=== PATIENT | male | born 1975 | race Hispanic/Latino ===

== ENCOUNTER 2019-08-11 22:56 | Inpatient (IN) | payer SELFPAY ==
[~2019-08-11 22:56] MED LIST: ISOVUE-370 76%-LOCM 1 ML ONE
[2019-08-11 23:22] LABS: #Lymphocytes 0.3 thou/uL (1.20-3.40); #Neutrophils 4.5 thou/uL (1.40-6.50); %Basophils 0.2 % (0.0-1.0); %Eosinophils 0.3 % (0.0-10.0); %Lymphocytes 6.4 % (21.0-51.0); %Monocytes 0.4 % (0.0-10.0); %Neutrophils 92.7 % (42.0-75.0); Hemoglobin 16.9 g/dL (14.0-18.0); Mean Corpuscular HGB CONC 35.4 g/dL (32.0-36.0); Mean Corpuscular Hemoglobin 31.9 pg (27.0-31.0); Mean Platelet Volume 6.9 fL (7.4-10.4); Platelet Count 135 thou/uL (130-400); RBC Distribution Width 11.4 % (11.5-14.5); Red Blood Cell (RBC) Count 5.31 mill/uL (4.70-6.10); White Blood Cell (WBC) Count 4.8 thou/uL (4.8-10.8)
[2019-08-11] MEDS ORDERED: Ondansetron PF 4 MG/2 ML Vial ONE (23:26)
[2019-08-11 23:29] LABS: INR-International Normal Ratio 1.2; PTT 23.2 SEC (22.9-36.1)
--- NOTE | 2019-08-11 23:36 | CT ---
CT ABDOMEN WITH CONTRAST CT PELVIS WITH CONTRAST: DATE: 08/11/2019 HISTORY: 43-year-old male with "sepsis." Generalized abdominal pain, fever, nausea, chills. COMPARISON: None available TECHNIQUE: IV injection of iodinated contrast media: administered. Oral contrast media:Not administered FINDINGS: There is mural thickening and mural edema involving the cecum. This continues into involvement of the entire appendix, which also has mural thickening and mural edema. Caliber of the appendix proximally is 11 x 9 mm. There is little or no periappendiceal fat stranding. No extraluminal gas or free fluid within the abdominal cavity or pelvic cavity. No signs of colonic diverticulitis. No small bowel dilation. Empty urinary bladder. No major pathology identified involving kidneys, abdomin al aorta, adrenals, pancreas, liver, or spleen. No pleural effusion. Cholecystectomy clips in gallbladder fossa. IMPRESSION: 1. Mural edema and mural thickening of the appendix and cecum. Uncertain whether this is a primary ac [place] appendicitis (without perforation) that is secondarily involving the cecum, or a typhlitis that is secondarily involving the appendix. 2. Status post cholecystectomy. 3. No abscess.
[2019-08-11 23:41] LABS: ALT (SGPT) 315 U/L (8-55); AST (SGOT) 813 U/L (5-34); Albumin 4.1 g/dL (3.5-5.0); Alkaline Phosphatase 184 U/L (40-110); Anion Gap 16 mmol/L (10-20); BUN (Urea Nitrogen) 18 mg/dL (8.9-20.6); Bilirubin, Total 2.5 mg/dL (0.2-1.2); Calc. Creatinine Clearance 0 mL/min (70-130); Calcium 9.1 mg/dL (7.8-10.44); Carbon Dioxide 21 mmol/L (22-29); Chloride 102 mmol/L (98-107); Estimated GFR-MDRD 48; Globulin 2.7 g/dL (2.4-3.5); Glucose 182 mg/dL (70-105); Lipase 33 U/L (8-78); Protein, Total 6.8 g/dL (6.0-8.3); Sodium 136 mmol/L (136-145)
[2019-08-12] MEDS ORDERED: Piperacillin/Tazobactam 4.5 GM VIAL ONE (00:08)
[2019-08-12 00:52] LABS: Bacteria/HPF None Seen HPF (None Seen); Bilirubin Negative (Negative); Blood, Urine Negative (Negative); Clarity Clear (Clear); Glucose, Urine (Dipstick) Normal (Negative); Leukocyte Negative Leu/uL (Negative); Nitrite Negative (Negative); Protein, Urine (Dipstick) 50 mg/dL (Neg-Trace); RBC/HPF 0-3 HPF (0-3); Squamous Epithelial None Seen HPF (0-3); Urobilinogen Normal mg/dL (Less than 2)
[2019-08-12 03:16] LABS: Lactic Acid 3.6 mmol/L (0.5-2.2)
[2019-08-12] MEDS ORDERED: Acetaminophen 325 MG TAB PO PRN (03:43)
[2019-08-12] MEDS ORDERED: Lorazepam 2 MG/ML VIAL SLOW IVP PRN (03:50)
--- NOTE | 2019-08-12 05:06 | HP ---
CHIEF COMPLAINT: Abdominal pain. HISTORY OF PRESENT ILLNESS: This patient is a 43-year-old male, who drinks 4 to 5 very large beers per day, who presented to the emergency department complaining of abdominal pain. The patient had sharp pressure-type epigastric and left lower quadrant pain, that started about 30 minutes post prandial, his ate the same meal and she is not having any symptoms, that was at noon today. The pain was up to 10/10, slightly better now at 6/10. It is specifically located in the epigastrium and left lower quadrant. Denies any right upper quadrant or right lower quadrant pain. The patient also had some vomiting, that is actually what prompted him to seek attention in the emergency department. He has no significant history of abdominal issues. REVIEW OF SYSTEMS: Vomiting times a couple of episodes. He has some headache, lightheadedness, and minimal cough. All other systems reviewed, all pertinent positives and negatives noted in history of present illness. PAST MEDICAL HISTORY: None. PAST SURGICAL HISTORY: Lap angela. FAMILY HISTORY: Only notable for "heart problems." SOCIAL HISTORY: The patient smokes 2 to 3 cigarettes per day. He drinks 4 to 5 large beers per day. He cannot recall the last time he went 24 hours without drinking this much, but he does report that it has been many years. Denies drugs. He is . He is full code. His son is his surrogate decision maker. ALLERGIES: NONE. MEDICATIONS: None. PHYSICAL EXAMINATION: VITAL SIGNS: Initially on presentation to the ER, BP was 74/42, pulse 116, respirations 20, temperature 99.8, O2 saturation was 94% on room air. Lowest blood pressure recorded was 69/47, heart rate got as high as 111, and his T-max in the ER was 99%. Most recent blood pressure was 91/69 with pulse of 102. GENERAL APPEARANCE: Age-appropriate male, in no distress. He is awake, alert, oriented, pleasant, and cooperative. HEENT: Slight scleral icterus. No acute lesions. NECK: Supple and symmetric. HEART: Regular rate and rhythm with no murmurs, gallops or rubs. LUNGS: Clear to auscultation bilaterally with no wheezes or rales. ABDOMEN: Soft and nondistended. There is slight tenderness to palpation in the epigastrium and left lower quadrant, but fairly minimal. He has no guarding and no rebound. Bowel sounds are significantly diminished. EXTREMITIES: No cyanosis, clubbing or edema. PSYCHIATRIC: Normal affect and behavior. NEUROLOGIC: The patient moves all extremities spontaneously, appears to be cognitively intact with no focal deficits. LABORATORY DATA: White count 4.8, hemoglobin 16.9, and platelets 135. PT 15.0, INR 1.2, and PTT 23.2. Sodium 136, potassium 3.0, chloride 102, CO2 of 21, BUN 18, creatinine 1.61 with a GFR of 48, glucose 182, lactic acid 5.3 with subsequent 3.6, and calcium 9.1. Total bilirubin 2.5, AST 813, ALT 315, and alk phos 184. Urinalysis unremarkable. CT abdomen and pelvis, mural edema and mural thickening of the appendix and cecum, uncertain whether this is a primary acute appendicitis that is secondarily involving the cecum or a typhlitis that is secondarily involving the appendix, status post cholecystectomy. No abscess is seen. IMPRESSION AND PLAN: 1. Abdominal pain with nausea, vomiting, and hypotension with abnormal CT concerning for inflammatory changes in the cecum and appendix area. The patient had a CT reviewed by Dr. Cason. She did not feel he had acute appendicitis or that there was a need for immediate surgical intervention. He has received vancomycin and Zosyn in the emergency department. We will continue with those. 2. Sepsis. The patient has hypotension with elevated lactic acid and concern for underlying infection in the bowel. He has a fluid resuscitation. We will continue with IV antibiotics. 3. Alcoholism. The patient is a daily significant drinker. We will give p.r.n. Ativan, thiamine, and a banana bag. 4. Hypokalemia. We will replete the potassium IV. 5. Renal insufficiency. I have no prior labs to know if this is acute or chronic. Currently, he is at a stage III level GFR. We will see how that responds to IV fluids. 6. Abnormal LFTs with elevated bilirubin. Again, the patient is a fairly heavy alcohol drinker and this may be acute alcoholic hepatitis. He is not tender in the liver or right upper quadrant and CT did not show other pathology. He has had a cholecystectomy. We will continue to monitor. 7. Hyperglycemia. We will continue to trend. Job ID: [id number]
[2019-08-12] MEDS ORDERED: Acetaminophen 325 MG TAB ONE (05:30)
[2019-08-12] MEDS ORDERED: Potassium Chloride 40 MEQ in Sodium Chloride 0.9% 500 ML IVPB SCH (06:00)
[2019-08-12] MEDS: Sodium Chloride 0.9% 1,000 ML IV SCH ×2 (06:09→17:54)
[2019-08-12] MEDS: Multivitamins, Adult 10 ML, Folic Acid 1 MG, Thiamine HCl 100 MG in Dextrose 5 %-0.45 %... IV SCH (06:25)
[2019-08-12] MEDS ORDERED: FLU VACC QS2019-20(6MOS UP)/PF 60 MCG/0.5 ML SYRINGE IM ONE (08:30)
[2019-08-12] MEDS ORDERED: Vancomycin HCl 1 GM in Premix Bag 1 BAG IVPB SCH (09:00)
[2019-08-12] MEDS: Enoxaparin Sodium 40 MG/0.4 ML SYRINGE SC SCH (10:07)
[2019-08-12] MEDS: Piperacillin/Tazobactam 3.375 GM in Sodium Chloride 0.9% 100 ML IVPB SCH ×4 (10:07→23:35)
[2019-08-12] MEDS: Famotidine/PF 20 mg/2ml Vial SLOW IVP SCH ×2 (10:08→20:39)
[2019-08-12 10:43] VITALS: BMI 33.6
[2019-08-12] MEDS: Vancomycin HCl 1.25 GM in Sodium Chloride 0.9% 250 ML 250 ML IVPB SCH (12:58)
--- NOTE | 2019-08-12 13:14 | PDOC.HOSPP ---
- Subjective Encounter Date: 08/12/19 Encounter Time: 10:30 Subjective: awake, not in distress at bedside no nausea or vomiting, is passing flatus, no bm - Objective Vital Signs & Weight: Vital Signs (12 hours) Temp Pulse Resp BP Pulse Ox 08/12/19 11:55 98.5 F 78 18 97/59 L 97 08/12/19 07:30 100.3 F H 94 18 104/58 L 96 Weight Weight 202 lb Result Diagrams: 08/11/19 23:09 08/11/19 23:09 Hospitalist ROS - Medication Medications: Active Medications Generic Name Dose Route Start Last Admin Trade Name Freq PRN Reason Stop Dose Admin Acetaminophen 650 mg 08/12/19 03:43 08/12/19 05:25 Tylenol PO 650 mg Q4H PRN Administration Headache/Fever/Mild Pain (1-3) Enoxaparin Sodium 40 mg 08/12/19 09:00 08/12/19 10:07 Lovenox SC 40 mg 0900 ROMELIA Administration Famotidine 20 mg 08/12/19 09:00 08/12/19 10:08 Pepcid SLOW IVP 20 mg Q12HR ROMELIA Administration Piperacillin Sod/Tazobactam 100 mls @ 200 mls/hr 08/12/19 06:00 08/12/19 11: 58 Sod 3.375 gm/ Sodium Chloride IVPB 100 mls Q6HR ROMELIA Administration Multivitamins 10 ml/ Folic 1,011.2 mls @ 100 mls/hr 08/12/19 06:00 08/12/19 06:25 Acid 1 mg/ Thiamine HCl 100 mg IV 1,011.2 mls / Dextrose/Sodium Chloride 0600 ROMELIA Administration Sodium Chloride 1,000 mls @ 75 mls/hr 08/12/19 05:00 08/12/19 06:09 Normal Saline 0.9% IV 1,000 mls .[id number] ROMELIA Administration Vancomycin HCl 1.25 gm/ Sodium 250 mls @ 166.667 mls/hr 08/12/19 13:00 12:58 Chloride IVPB 250 mls 0100,1300 ROMELIA Administration Sodium Chloride 10 ml 08/12/19 09:00 08/12/19 10:07 Flush - Normal Saline IVF 10 ml Q12HR ROMELIA Administration - Exam General Appearance: awake alert, ill appearing Eye: PERRL, anicteric sclera ENT: no oropharyngeal lesions, moist mucosa Neck: supple, no JVD Heart: RRR, no murmur Respiratory: no wheezes, no rales Gastrointestinal: soft, normal bowel sounds, no guarding, no rigidity, distended Extremities: no cyanosis, no edema Neurological: cranial nerve grossly intact, no focal deficits Psychiatric: A&O x 3 Hosp A/P (1) Colitis Code(s): K52.9 - NONINFECTIVE GASTROENTERITIS AND COLITIS, UNSPECIFIED Status : Acute (2) Sepsis Code(s): A41.9 - SEPSIS, UNSPECIFIED ORGANISM Status: Acute Qualifiers: Sepsis type: sepsis due to unspecified organism (3) MIKE (acute kidney injury) Code(s): N17.9 - ACUTE KIDNEY FAILURE, UNSPECIFIED Status: Acute (4) Alcohol abuse Code(s): F10.10 - ALCOHOL ABUSE, UNCOMPLICATED Status: Chronic (5) Metabolic acidosis Code(s): E87.2 - ACIDOSIS Status: Acute (6) Tobacco abuse Code(s): Z72.0 - TOBACCO USE Status: Chronic (7) Alcoholic hepatitis Code(s): K70.10 - ALCOHOLIC HEPATITIS WITHOUT ASCITES Status: Acute Qualifiers: Ascites presence: unspecified Qualified Code(s): K70.10 - Alcoholic hepatitis without ascites - Plan await culture results, is on zosyn, clear liq diet no surgery for now, surgical consult is pending gentle iv fluids/banana bag, ASE protocol, watch for aspiration to ambulate as tolerated I have given full updates to and patient at bedside May transfer to medical floor
--- NOTE | 2019-08-12 17:11 | PDOC.GSPN ---
Surgery Progress Note: Subj - Subjective Narrative: Patient seen this afternoon. Full consult note to follow. Alcoholic patient admitted with symptoms of gastritis, with findings of typhlitis and thickened appendix on CT. I reviewed his CT last night and felt the changes in the cecal cap were much more prominent, and the appendix mural thickening was likely reactive. The patient denies any pain in the right lower quadrant. He states that his pain is mostly in the epigastrium, with some pain in the left lower quadrant. Exam is consistent with this. Recommend medical treatment for gastritis and typhlitis, with repeat CT if symptoms worsen. I will follow while he is inpatient but do not plan surgical intervention at this time. Surgery Progress Note: Obj - Vital signs Vital signs: Vital Signs - Most Recent Temp Pulse Resp BP Pulse Ox 98.5 F 78 18 97/59 L 97 08/12/19 11:55 08/12/19 11:55 08/12/19 11:55 08/12/19 11:55 08/12/19 11:55 Surgery Progress Note: Results - Labs Result Diagrams: 08/11/19 23:09 08/11/19 23:09
[2019-08-13] MEDS: Vancomycin HCl 1.25 GM in Sodium Chloride 0.9% 250 ML 250 ML IVPB SCH ×3 (00:20→21:40)
--- NOTE | 2019-08-13 01:20 | CON ---
DATE OF CONSULTATION: CHIEF COMPLAINT: Abdominal pain. HISTORY OF PRESENT ILLNESS: Mr. Jordan King is a 43-year-old man with history of alcohol abuse, who presented to the emergency department with a 1-day history of abdominal pain. He states that the pain was in the epigastric area in the left lower quadrant and was sharp, it began shortly after he ate, but persisted, so he came to the emergency room. He states that the pain is better since being admitted to the hospital. He denies any exacerbating or alleviating factors. Specifically, movement does not have any impact on the pain. He denies any diarrhea. He did have some nausea and vomiting, but this has resolved. He denies any fevers, although he thinks he had some chills yesterday. PAST MEDICAL HISTORY: Alcohol abuse. PAST SURGICAL HISTORY: Laparoscopic cholecystectomy. FAMILY HISTORY: Heart disease. SOCIAL HISTORY: He states that he drinks about 6 beers every day and smokes 2 or 3 cigarettes a week. He denies any illicit drug use. He has no history of shakes or DTs, but does not abstain from alcohol for any length of time. ALLERGIES: NO KNOWN DRUG ALLERGIES. MEDICATIONS: No outpatient medications. He did take some [id number] pills for his pain, which did not help. Inpatient medications include, 1. Lovenox. 2. Pepcid. 3. Ativan. 4. Multivitamin with folate and thiamine. 5. Zosyn. 6. Potassium. 7. Vancomycin. REVIEW OF SYSTEMS: Ten-system review of systems is negative except per HPI. PHYSICAL EXAMINATION: VITAL SIGNS: T-max 100.3, T current 98.5, heart rate 78, respirations 18, 97% saturated on room air, blood pressure 97/59. GENERAL: Reveals a healthy-appearing man, in no acute distress. He is not jaundiced or icteric. He is not flushed or toxic in appearance. HEENT: Unremarkable. NECK: Supple without lymphadenopathy or thyroid nodules. HEART: Regular in its rate and rhythm without murmurs, rubs, or gallops. LUNGS: Clear to auscultation bilaterally. ABDOMEN: Soft, nondistended. No palpable masses or hernias. He has some tenderness in the epigastric area in the left lower quadrant, but no tenderness in the right lower quadrant. He does not exhibit rigidity, rebound, or guarding. EXTREMITIES: Warm and well perfused without edema. NEURO: No focal deficits. PSYCHIATRIC: Alert, oriented, and appropriate . LABORATORY DATA: White count is 4.8, hematocrit 47, platelets 135. Coags are normal. Potassium is low at 3, but has been replaced. Bicarb 21, BUN 18, creatinine elevated at 1.61, glucose 182. Lactate was initially 5.3, came down somewhat to 3.6 after IV fluids. Total bilirubin is elevated at 2.5, AST and ALT are elevated at 813 and 315, alkaline phosphatase is elevated at 184. CT of abdomen and pelvis showed some mural edema and thickening of the appendix and cecum. The appendix near the cecal cap is dilated, but the tip is normal caliber. There is no apparent periappendiceal fat stranding. No free fluid or free air. ASSESSMENT: Incidentally noted typhlitis with reactive mural thickening of the appendix. I do not believe the patient has acute appendicitis and recommend medical treatment for the typhlitis. I believe that the symptoms that brought him in are more likely related to alcoholic hepatitis or gastritis and recommend medical management of this as well. I will continue to follow the patient while he is admitted, but no surgical intervention is necessary at this time he will require this. He has some acute renal insufficiency, but does not appear significantly dehydrated. If this does not improve, then renal consultation may be necessary. If his liver labs do not improve, then GI consult would be indicated. He denies any hematemesis or melena, so I do not believe he has any significant GI bleeding, but he is certainly at risk for this. He is on appropriate prophylaxis for ulcers and withdrawal. Job ID: [id number]
[2019-08-13] MEDS: Piperacillin/Tazobactam 3.375 GM in Sodium Chloride 0.9% 100 ML IVPB SCH ×4 (05:10→23:33)
[2019-08-13] MEDS: Multivitamins, Adult 10 ML, Folic Acid 1 MG, Thiamine HCl 100 MG in Dextrose 5 %-0.45 %... IV SCH (05:53)
[2019-08-13 05:56] LABS: Band 25 % (5-11); Hemoglobin 14.4 g/dL (14.0-18.0); Lymphocytes 4 % (21-51); MDiff Complete? YES; Mean Corpuscular HGB CONC 35.2 g/dL (32.0-36.0); Mean Corpuscular Volume 90.8 fL (78.0-98.0); Mean Platelet Volume 7.8 fL (7.4-10.4); Monocytes 2 % (0-10); Neutrophil 69 % (42-75); Platelet Count 125 thou/uL (130-400); RBC Distribution Width 11.2 % (11.5-14.5); Red Blood Cell (RBC) Count 4.49 mill/uL (4.70-6.10); White Blood Cell (WBC) Count 13.8 thou/uL (4.8-10.8)
[2019-08-13 05:59] LABS: ALT (SGPT) 241 U/L (8-55); AST (SGOT) 107 U/L (5-34); Albumin 3.2 g/dL (3.5-5.0); Alkaline Phosphatase 107 U/L (40-110); Anion Gap 11 mmol/L (10-20); BUN (Urea Nitrogen) 9 mg/dL (8.9-20.6); Bilirubin, Total 1.3 mg/dL (0.2-1.2); Calc. Creatinine Clearance 159 mL/min (70-130); Calcium 7.8 mg/dL (7.8-10.44); Carbon Dioxide 23 mmol/L (22-29); Chloride 105 mmol/L (98-107); Estimated GFR-MDRD Greater than 90; Globulin 2.6 g/dL (2.4-3.5); Glucose 81 mg/dL (70-105); Protein, Total 5.8 g/dL (6.0-8.3); Sodium 136 mmol/L (136-145)
[2019-08-13] MEDS: Sodium Chloride 0.9% 1,000 ML IV SCH ×2 (07:08→23:32)
[2019-08-13] MEDS: Enoxaparin Sodium 40 MG/0.4 ML SYRINGE SC SCH (09:28)
[2019-08-13] MEDS: Famotidine/PF 20 mg/2ml Vial SLOW IVP SCH ×2 (09:29→20:35)
--- NOTE | 2019-08-13 11:30 | PDOC.GSPN ---
Surgery Progress Note: Subj - Subjective Narrative: Patient feels better today. He states he is no longer having any abdominal pain. No fevers since yesterday morning. Vital signs are good. LFTs have improved. White count is elevated and he does have a bandemia, but I suspect that the bandemia was present on admission. He did not have a manual differential performed at admission, but he had over 90% segmented neutrophils on his automated differential. His abdomen is slightly distended but completely nontender. He appears to be responding to antibiotics for his typhlitis. No new recommendations. He should continue on his antibiotics as he is doing. I expect that the bandemia will resolve, but if this persists or he spikes fevers repeat CT can be considered. Surgery Progress Note: Obj - Vital signs Vital signs: Vital Signs - Most Recent Temp Pulse Resp BP Pulse Ox 99.2 F 85 18 107/67 95 08/13/19 07:14 08/13/19 07:14 08/13/19 07:14 08/13/19 07:14 08/13/19 07:35 Surgery Progress Note: Results - Labs Result Diagrams: 08/13/19 04:42 08/13/19 04:42 Lab results: Laboratory Results - last 24 hr 08/13/19 08/13/19 08/13/19 04:42 04:42 05:17 WBC 13.8 H RBC 4.49 L Hgb 14.4 Hct 40.7 L MCV 90.8 MCH 32.0 H MCHC 35.2 RDW 11.2 L Plt Count 125 L MPV 7.8 Neutrophils % (Manual) 69 Band Neuts % (Manual) 25 H Lymphocytes % (Manual) 4 L Monocytes % (Manual) 2 Sodium 136 Potassium 3.0 L Chloride 105 Carbon Dioxide 23 Anion Gap 11 BUN 9 Creatinine 0.79 Estimated GFR (MDRD) Greater than 90 Glucose 81 POC Glucose 84 Calcium 7.8 Total Bilirubin 1.3 H AST 107 H ALT 241 H Alkaline Phosphatase 107 Serum Total Protein 5.8 L Albumin 3.2 L Globulin 2.6 Albumin/Globulin Ratio 1.2 08/13/19 10:57 WBC RBC Hgb Hct MCV MCH MCHC RDW Plt Count MPV Neutrophils % (Manual) Band Neuts % (Manual) Lymphocytes % (Manual) Monocytes % (Manual) Sodium Potassium Chloride Carbon Dioxide Anion Gap BUN Creatinine Estimated GFR (MDRD) Glucose POC Glucose 160 H Calcium Total Bilirubin AST ALT Alkaline Phosphatase Serum Total Protein Albumin Globulin Albumin/Globulin Ratio
[2019-08-13 12:38] LABS: Vancomycin, Trough 4.8 ug/mL
--- NOTE | 2019-08-13 18:06 | PDOC.HOSPP ---
- Subjective Encounter Date: 08/13/19 Encounter Time: 10:45 Subjective: is amb in room passing bm, no nausea or abd pain is eating well, no shaking of extremities, responds well to verbal stimuli - Objective Vital Signs & Weight: Vital Signs (12 hours) Temp Pulse Resp BP Pulse Ox 08/13/19 16:00 99.3 F 83 20 113/73 97 08/13/19 11:00 99.1 F 81 18 109/71 96 08/13/19 07:35 95 08/13/19 07:14 99.2 F 85 18 107/67 95 Weight Weight 202 lb I&O: 08/12/19 08/13/19 08/14/19 06:59 06:59 06:59 Intake Total 1640 Balance 1640 Result Diagrams: 08/13/19 04:42 08/13/19 04:42 Additional Labs: Accuchecks 08/13/19 08/13/19 08/13/19 16:34 10:57 05:17 POC Glucose 131 H 160 H 84 08/12/19 20:07 POC Glucose 95 Hospitalist ROS - Medication Medications: Active Medications Generic Name Dose Route Start Last Admin Trade Name Freq PRN Reason Stop Dose Admin Acetaminophen 650 mg 08/12/19 03:43 08/12/19 05:25 Tylenol PO 650 mg Q4H PRN Administration Headache/Fever/Mild Pain (1-3) Enoxaparin Sodium 40 mg 08/12/19 09:00 08/13/19 09:28 Lovenox SC 40 mg 0900 ROMELIA Administration Famotidine 20 mg 08/12/19 09:00 08/13/19 09:29 Pepcid SLOW IVP 20 mg Q12HR ROMELIA Administration Piperacillin Sod/Tazobactam 100 mls @ 200 mls/hr 08/12/19 06:00 08/13/19 12: 04 Sod 3.375 gm/ Sodium Chloride IVPB 100 mls Q6HR ROMELIA Administration Multivitamins 10 ml/ Folic 1,011.2 mls @ 100 mls/hr 08/12/19 06:00 08/13/19 05:53 Acid 1 mg/ Thiamine HCl 100 mg IV 1,011.2 mls / Dextrose/Sodium Chloride 0600 ROMELIA Administration Sodium Chloride 1,000 mls @ 75 mls/hr 08/12/19 05:00 08/13/19 07:08 Normal Saline 0.9% IV Not Given .[id number] ROMELIA Vancomycin HCl 1.25 gm/ Sodium 250 mls @ 166.667 mls/hr 08/13/19 14:00 13:25 Chloride IVPB 250 mls Q8HR ROMELIA Administration Sodium Chloride 10 ml 08/12/19 09:00 08/13/19 09:30 Flush - Normal Saline IVF 10 ml Q12HR ROMELIA Administration - Exam General Appearance: awake alert Eye: PERRL, anicteric sclera ENT: no oropharyngeal lesions, moist mucosa Neck: supple, no JVD Heart: RRR, no murmur Respiratory: no wheezes, no rales Gastrointestinal: soft, non-tender, normal bowel sounds, distended Extremities: no cyanosis, no edema Neurological: cranial nerve grossly intact, no focal deficits Psychiatric: normal affect, A&O x 3 Hosp A/P (1) Colitis Code(s): K52.9 - NONINFECTIVE GASTROENTERITIS AND COLITIS, UNSPECIFIED Status : Acute (2) Sepsis Code(s): A41.9 - SEPSIS, UNSPECIFIED ORGANISM Status: Acute Qualifiers: Sepsis type: sepsis due to unspecified organism (3) MIKE (acute kidney injury) Code(s): N17.9 - ACUTE KIDNEY FAILURE, UNSPECIFIED Status: Resolved (4) Alcohol abuse Code(s): F10.10 - ALCOHOL ABUSE, UNCOMPLICATED Status: Chronic (5) Metabolic acidosis Code(s): E87.2 - ACIDOSIS Status: Resolved (6) Tobacco abuse Code(s): Z72.0 - TOBACCO USE Status: Chronic (7) Alcoholic hepatitis Code(s): K70.10 - ALCOHOLIC HEPATITIS WITHOUT ASCITES Status: Acute Qualifiers: Ascites presence: unspecified Qualified Code(s): K70.10 - Alcoholic hepatitis without ascites - Plan await culture results, is on zosyn, clear liq diet d/w , has typhlitis gentle iv fluids/banana bag, ASE protocol, watch for aspiration to ambulate as tolerated d/w patient and May transfer to medical floor anytime wbc is up a bit, bands+, tmax 99
[2019-08-14] MEDS: Piperacillin/Tazobactam 3.375 GM in Sodium Chloride 0.9% 100 ML IVPB SCH ×3 (05:33→18:20)
[2019-08-14] MEDS: Multivitamins, Adult 10 ML, Folic Acid 1 MG, Thiamine HCl 100 MG in Dextrose 5 %-0.45 %... IV SCH (05:34)
[2019-08-14] MEDS: Vancomycin HCl 1.25 GM in Sodium Chloride 0.9% 250 ML 250 ML IVPB SCH ×3 (05:35→21:52)
[2019-08-14 08:01] LABS: #Eosinphils 0.1 thou/uL (0.0-0.7); #Lymphocytes 1.2 thou/uL (1.20-3.40); #Monocytes 0.6 thou/uL (0.11-0.59); #Neutrophils 7.4 thou/uL (1.40-6.50); %Basophils 0.1 % (0.0-1.0); %Eosinophils 1.5 % (0.0-10.0); %Lymphocytes 12.4 % (21.0-51.0); %Monocytes 6.4 % (0.0-10.0); %Neutrophils 79.7 % (42.0-75.0); Hemoglobin 14.6 g/dL (14.0-18.0); Mean Corpuscular HGB CONC 36.1 g/dL (32.0-36.0); Mean Corpuscular Hemoglobin 31.8 pg (27.0-31.0); Mean Corpuscular Volume 88.2 fL (78.0-98.0); Mean Platelet Volume 7.5 fL (7.4-10.4); Platelet Count 126 thou/uL (130-400); Red Blood Cell (RBC) Count 4.59 mill/uL (4.70-6.10); White Blood Cell (WBC) Count 9.3 thou/uL (4.8-10.8)
[2019-08-14 08:22] LABS: ALT (SGPT) 140 U/L (8-55); AST (SGOT) 34 U/L (5-34); Albumin 3.3 g/dL (3.5-5.0); Alkaline Phosphatase 97 U/L (40-110); Anion Gap 9 mmol/L (10-20); BUN (Urea Nitrogen) 5 mg/dL (8.9-20.6); Bilirubin, Total 0.9 mg/dL (0.2-1.2); Calc. Creatinine Clearance 164 mL/min (70-130); Calcium 8.2 mg/dL (7.8-10.44); Carbon Dioxide 24 mmol/L (22-29); Chloride 107 mmol/L (98-107); Estimated GFR-MDRD Greater than 90; Globulin 2.6 g/dL (2.4-3.5); Glucose 117 mg/dL (70-105); Potassium 3.1 mmol/L (3.5-5.1); Protein, Total 5.9 g/dL (6.0-8.3); Sodium 137 mmol/L (136-145)
[2019-08-14] MEDS: Enoxaparin Sodium 40 MG/0.4 ML SYRINGE SC SCH (09:42)
[2019-08-14] MEDS: Sodium Chloride 0.9% 1,000 ML IV SCH ×2 (11:15→21:52)
--- NOTE | 2019-08-14 12:45 | PDOC.HOSPP ---
- Subjective Encounter Date: 08/14/19 Encounter Time: 09:50 Subjective: no abd pain, nausea or vomiting is tolerating oral diet ambulating in room oriented well with no shaking/withdrawal symptoms - Objective Vital Signs & Weight: Vital Signs (12 hours) Temp Pulse Resp BP BP Pulse Ox 08/14/19 12:12 98.7 F 83 16 132/69 95 08/14/19 09:39 99.1 F 77 16 118/77 118/77 96 08/14/19 04:00 99.5 F 79 16 119/77 95 Weight Weight 202 lb I&O: 08/13/19 08/14/19 08/15/19 06:59 06:59 06:59 Intake Total 1640 4370 Balance 1640 4370 Result Diagrams: 08/14/19 07:45 08/14/19 07:45 Additional Labs: Accuchecks 08/14/19 08/14/19 08/13/19 11:22 05:42 20:08 POC Glucose 120 H 105 127 H 08/13/19 16:34 POC Glucose 131 H Hospitalist ROS - Medication Medications: Active Medications Generic Name Dose Route Start Last Admin Trade Name Freq PRN Reason Stop Dose Admin Acetaminophen 650 mg 08/12/19 03:43 08/12/19 05:25 Tylenol PO 650 mg Q4H PRN Administration Headache/Fever/Mild Pain (1-3) Enoxaparin Sodium 40 mg 08/12/19 09:00 08/14/19 09:42 Lovenox SC 40 mg 0900 ROMELIA Administration Piperacillin Sod/Tazobactam 100 mls @ 200 mls/hr 08/12/19 06:00 08/14/19 05: 33 Sod 3.375 gm/ Sodium Chloride IVPB 100 mls Q6HR ROMELIA Administration Multivitamins 10 ml/ Folic 1,011.2 mls @ 100 mls/hr 08/12/19 06:00 08/14/19 05:34 Acid 1 mg/ Thiamine HCl 100 mg IV 1,011.2 mls / Dextrose/Sodium Chloride 0600 ROMELIA Administration Sodium Chloride 1,000 mls @ 75 mls/hr 08/12/19 05:00 08/14/19 11:15 Normal Saline 0.9% IV Not Given .[id number] ROMELIA Vancomycin HCl 1.25 gm/ Sodium 250 mls @ 166.667 mls/hr 08/13/19 14:00 05:35 Chloride IVPB 250 mls Q8HR ROMELIA Administration Pantoprazole Sodium 40 mg 08/14/19 09:00 08/14/19 09:43 Protonix PO 40 mg BID ROMELIA Administration Sodium Chloride 10 ml 08/12/19 09:00 08/14/19 09:38 Flush - Normal Saline IVF Not Given Q12HR ROMELIA - Exam General Appearance: awake alert Eye: PERRL, anicteric sclera ENT: no oropharyngeal lesions, moist mucosa Neck: supple, no JVD Heart: RRR, no murmur Respiratory: no wheezes, no rales Gastrointestinal: soft, non-tender, non-distended, normal bowel sounds Extremities: no cyanosis, no edema Neurological: cranial nerve grossly intact, no focal deficits Psychiatric: A&O x 3 Hosp A/P (1) Colitis Code(s): K52.9 - NONINFECTIVE GASTROENTERITIS AND COLITIS, UNSPECIFIED Status : Acute (2) Sepsis Code(s): A41.9 - SEPSIS, UNSPECIFIED ORGANISM Status: Acute Qualifiers: Sepsis type: sepsis due to unspecified organism (3) MIKE (acute kidney injury) Code(s): N17.9 - ACUTE KIDNEY FAILURE, UNSPECIFIED Status: Resolved (4) Alcohol abuse Code(s): F10.10 - ALCOHOL ABUSE, UNCOMPLICATED Status: Chronic (5) Metabolic acidosis Code(s): E87.2 - ACIDOSIS Status: Resolved (6) Tobacco abuse Code(s): Z72.0 - TOBACCO USE Status: Chronic (7) Alcoholic hepatitis Code(s): K70.10 - ALCOHOLIC HEPATITIS WITHOUT ASCITES Status: Acute Qualifiers: Ascites presence: unspecified Qualified Code(s): K70.10 - Alcoholic hepatitis without ascites - Plan will adv diet to heart healthy, cultures are -ve d/w , has typhlitis, no operative intervention needed gentle iv fluids/banana bag, ASE protocol, watch for aspiration to ambulate as tolerated d/w patient May transfer to medical floor anytime wbc is back to normal, lft's are trending towards normal this am dc plan in am on cipro/flagyl?
--- NOTE | 2019-08-14 15:04 | PDOC.GSPN ---
Surgery Progress Note: Subj - Subjective Narrative: Patient is feeling fine this morning. Denied abdominal pain or nausea. He is having some diarrhea. Abdominal exam is benign. He is slightly distended but nontender except for some very minimal left lower quadrant tenderness. Bowel sounds are normal to hyperactive. He is afebrile. His white count is normal and his left shift is improving. Agree with advancement of diet. Dr. Wilks will be following over the weekend. No surgical intervention is necessary at this time. Surgery Progress Note: Obj - Vital signs Vital signs: Vital Signs - Most Recent Temp Pulse Resp BP Pulse Ox 98.7 F 83 16 132/69 95 08/14/19 12:12 08/14/19 12:12 08/14/19 12:12 08/14/19 12:12 08/14/19 12:12 Surgery Progress Note: Results - Labs Result Diagrams: 08/14/19 07:45 08/14/19 07:45 Lab results: Laboratory Results - last 24 hr 08/14/19 08/14/19 08/14/19 05:42 07:45 07:45 WBC 9.3 RBC 4.59 L Hgb 14.6 Hct 40.5 L MCV 88.2 MCH 31.8 H MCHC 36.1 H RDW 11.0 L Plt Count 126 L MPV 7.5 Neutrophils % 79.7 H Lymphocytes % 12.4 L Monocytes % 6.4 Eosinophils % 1.5 Basophils % 0.1 Neutrophils # 7.4 H Lymphocytes # 1.2 Monocytes # 0.6 H Eosinophils # 0.1 Basophils # 0.0 Sodium 137 Potassium 3.1 L Chloride 107 Carbon Dioxide 24 Anion Gap 9 L BUN 5 L Creatinine 0.77 Estimated GFR (MDRD) Greater than 90 Glucose 117 H POC Glucose 105 Calcium 8.2 Total Bilirubin 0.9 AST 34 ALT 140 H Alkaline Phosphatase 97 Serum Total Protein 5.9 L Albumin 3.3 L Globulin 2.6 Albumin/Globulin Ratio 1.3 08/14/19 11:22 WBC RBC Hgb Hct MCV MCH MCHC RDW Plt Count MPV Neutrophils % Lymphocytes % Monocytes % Eosinophils % Basophils % Neutrophils # Lymphocytes # Monocytes # Eosinophils # Basophils # Sodium Potassium Chloride Carbon Dioxide Anion Gap BUN Creatinine Estimated GFR (MDRD) Glucose POC Glucose 120 H Calcium Total Bilirubin AST ALT Alkaline Phosphatase Serum Total Protein Albumin Globulin Albumin/Globulin Ratio
[2019-08-14] MEDS: Potassium Chloride 20 MEQ TAB PO SCH (18:24)
[2019-08-15] MEDS: Piperacillin/Tazobactam 3.375 GM in Sodium Chloride 0.9% 100 ML IVPB SCH ×2 (00:06→05:40)
[2019-08-15 05:18] LABS: #Eosinphils 0.2 thou/uL (0.0-0.7); #Lymphocytes 1.2 thou/uL (1.20-3.40); #Monocytes 0.7 thou/uL (0.11-0.59); #Neutrophils 4.9 thou/uL (1.40-6.50); %Basophils 0.5 % (0.0-1.0); %Lymphocytes 17.6 % (21.0-51.0); %Monocytes 9.3 % (0.0-10.0); %Neutrophils 69.7 % (42.0-75.0); Hemoglobin 14.4 g/dL (14.0-18.0); Mean Corpuscular HGB CONC 35.5 g/dL (32.0-36.0); Mean Corpuscular Volume 90.3 fL (78.0-98.0); Mean Platelet Volume 7.3 fL (7.4-10.4); Platelet Count 137 thou/uL (130-400); RBC Distribution Width 11.1 % (11.5-14.5)
[2019-08-15 05:41] LABS: ALT (SGPT) 104 U/L (8-55); AST (SGOT) 25 U/L (5-34); Albumin 3.4 g/dL (3.5-5.0); Alkaline Phosphatase 116 U/L (40-110); Anion Gap 11 mmol/L (10-20); BUN (Urea Nitrogen) 6 mg/dL (8.9-20.6); Bilirubin, Total 1.2 mg/dL (0.2-1.2); Calc. Creatinine Clearance 177 mL/min (70-130); Calcium 8.6 mg/dL (7.8-10.44); Carbon Dioxide 21 mmol/L (22-29); Chloride 107 mmol/L (98-107); Estimated GFR-MDRD Greater than 90; Globulin 2.7 g/dL (2.4-3.5); Glucose 103 mg/dL (70-105); Potassium 3.4 mmol/L (3.5-5.1); Protein, Total 6.1 g/dL (6.0-8.3); Sodium 136 mmol/L (136-145)
[2019-08-15] MEDS: Multivitamins, Adult 10 ML, Folic Acid 1 MG, Thiamine HCl 100 MG in Dextrose 5 %-0.45 %... IV SCH (05:41)
[2019-08-15] MEDS: Vancomycin HCl 1.25 GM in Sodium Chloride 0.9% 250 ML 250 ML IVPB SCH (06:23)
[2019-08-15] MEDS: Potassium Chloride 20 MEQ TAB PO SCH (08:25)
[2019-08-15 11:32] VITALS: BP 128/81; TEMP 98.7
[2019-08-15] MEDS: Enoxaparin Sodium 40 MG/0.4 ML SYRINGE SC SCH (11:53)
--- NOTE | 2019-08-15 16:28 | DIS ---
DATE OF ADMISSION: 08/12/2019 DATE OF DISCHARGE: 08/15/2019 DISCHARGE DIAGNOSES: 1. Typhlitis. 2. Abdominal pain. 3. Sepsis. 4. Alcoholism. 5. Hypokalemia. 6. Elevated liver enzymes, likely secondary to alcohol abuse. 7. Acute renal insufficiency. 8. Metabolic acidosis. HISTORY OF PRESENT ILLNESS: This patient is a 43-year-old male, who drinks too much alcohol, who presented to the hospital complaining of some abdominal pain, which had hit him fairly abruptly. His pain was more epigastric in the left lower quadrant area. His initial workup noted some hypotension. He also had an elevated lactic acid level at 5.3, and his creatinine was elevated at 1.61 with no baseline noted for him. He had elevated liver enzymes, and a CT of the abdomen and pelvis showed mural edema, mural thickening of the appendix and cecum, that was unclear whether it was a primary appendicitis or a typhlitis causing circumferential or halo of edema rather. The patient was started on broad-spectrum antibiotics in the emergency department. He was seen there by Dr. Cason, who did not feel the patient actually had active appendicitis. HOSPITAL COURSE: The patient was admitted to the hospital. His electrolytes were addressed. He was continued on IV antibiotics and appeared to symptomatically improve. He was noted to have a spike in his white blood cell count up to 13.8 , but then it subsequently came down. His kidney function continued to normalize, and his liver enzymes improved substantially, although his ALT remained slightly elevated. The patient was able to advance to a regular diet. His pain completely resolved. He had no complications with eating, and he was felt to be stable for discharge. PHYSICAL EXAMINATION: VITAL SIGNS: On day of discharge, temperature is 98.2, pulse is 75, respirations are 16, O2 saturation is 94% on room air, and BP is 123/79. GENERAL: He is awake, alert, oriented, pleasant, and cooperative. HEART: Regular rate and rhythm. LUNGS: Clear bilaterally. ABDOMEN: Soft, nontender, and nondistended with positive bowel sounds. EXTREMITIES: No cyanosis, clubbing, or edema. DISPOSITION: The patient is discharged to home. He does not have a primary care provider, although he says his has one, and he thinks he can establish with that physician. He is encouraged to do that within a week. He will be on Cipro 500 mg one p.o. b.i.d. for 5 days, Flagyl 500 mg t.i.d. for 5 days. DISCHARGE INSTRUCTIONS: He is on a regular diet. His activity is as tolerated. He can return to the hospital anytime he feels the need to do so. Time spent in discharge activities was 31 minutes. Job ID: [id number] MTDD
--- NOTE | 2019-08-18 05:39 | PQF ---
MALIK TOLEDO MD [id number] CLINICAL DOCUMENTATION CLARIFICATION FORM: POST DISCHARGE Addendum to original discharge summary date: ____ Late entry note date: __ DATE:08-18-19 ATTN:Malik Garrido Please exercise your independent, professional judgment in responding to the clarification form. Clinical indicators are provided on the bottom of this form for your review In your clinical opinion based on clinical findings below, can you please identify the etiology of Epigastric Pain if due to : Please check the appropriate box. [ x ] Alcoholic Hepatitis [ ] Gastritis [ ] Colitis [ ] Typhlitis [ ] abdominal pain unspecified [ ] other diagnosis please specify: [ ] unable to determine Present on Admission (POA): [x ] Yes [ ] No [ ] Unable to determine For continuity of documentation, please document condition throughout progress notes and discharge summary. Thank You. CLINICAL INDICATORS: H&P p1 / Complaining of abdominal pain, sharp pressure type epigastric pain and LLQ pain H&P p1 08/12 43years old male, who drinks 4-5 very large beers per day H&P p1 102Complaining of abdominal pain, sharp pressure type epigastric pain and LLQ pain H&P p2 102Abnormal CT concerning for inflammatory changes in the cecum and appendix area Consult p2 2Incidentally noted typhlitis wit reactive thickening of appendix Consult p2 believe that the symptoms that brought him in are more likley related to Alcoholic Hepatitis or Gastritis RISK FACTORS: H&P p2 10/-Alcoholism H&P p3 08/12-Acute alcoholic Hepatitis Consult p2 08/12-Typhlitis Consult p2 08/12-Gastritis Hospitalist PN p3 08/12-Colitis TREATMENTS: H&P p2 10-IV Vancomycin and Zosyn H&P p2 10-Will give Ativan, Thiamine and banana bag General Surgery consult-Dr Cason consult 08/12 (This form is maintained as a part of the permanent medical record) 2014 [employer], [employer]. All Rights Reserved [email or web address] [not provided] MTDD
== END 2019-08-15 12:10 | disposition home or self-care (01) | DRG 432 ==
LOC: EEVIPCON 22:56 → ERS 22:56 → ERHOLD 08-12 03:01 → 2NO 08-12 03:19 → ONC 08-14 17:45
PROVIDERS: ADMIT Internal Medicine; ATTEND Internal Medicine
PROC: 3E0234Z Introduction of Serum, Toxoid and Vaccine into Muscle, Percutaneous Approach (ICD-10-PCS; principal; 2019-08-12)
PROC: 3E02340 Introduction of Influenza Vaccine into Muscle, Percutaneous Approach (ICD-10-PCS; 2019-08-12)
DX: K70.10 Alcoholic hepatitis without ascites (principal); A41.9 Sepsis, unspecified organism; N17.9 Acute kidney failure, unspecified; E87.2 Acidosis; F17.210 Nicotine dependence, cigarettes, uncomplicated; F10.20 Alcohol dependence, uncomplicated; E87.6 Hypokalemia; R73.9 Hyperglycemia, unspecified; K52.9 Noninfective gastroenteritis and colitis, unspecified; K37 Unspecified appendicitis; K29.70 Gastritis, unspecified, without bleeding; Z90.49 Acquired absence of other specified parts of digestive tract; Z23 Encounter for immunization
CPT/HCPCS: 36415; 36416; 74177; 80053; 80202; 81003; 81015; 83605; 83690; 85007; 85025; 85027; 85610; 85730; 87040; 87149; 90471; 90686; 90732; 93005; 94760; 96361; 96365; 96367; 96375; G0008; G0009; J1650; J2405; J2543; J3370; J3411; J3480; J3490; J7042; J7050; Q9966; S0028

== ENCOUNTER 2023-03-16 15:15 | Emergency (ER) | payer SELFPAY ==
[2023-03-16] MEDS ORDERED: Acetaminophen 500 MG TAB ONE (16:12)
[2023-03-16 16:33] LABS: #Basophils 0.1 thou/uL (0.0-0.2); #Eosinphils 0.3 thou/uL (0.0-0.7); #Lymphocytes 1.8 thou/uL (1.20-3.40); #Monocytes 0.5 thou/uL (0.11-0.59); #Neutrophils 3.5 thou/uL (1.40-6.50); %Basophils 0.9 % (0.0-1.0); %Eosinophils 4.8 % (0.0-10.0); %Lymphocytes 29.4 % (21.0-51.0); %Monocytes 7.8 % (0.0-10.0); %Neutrophils 57.1 % (42.0-75.0); Hemoglobin 16.3 g/dL (14.0-18.0); Mean Corpuscular HGB CONC 36.4 g/dL (32.0-36.0); Mean Corpuscular Hemoglobin 33.3 pg (27.0-31.0); Mean Corpuscular Volume 91.5 fl (78.0-98.0); Mean Platelet Volume 6.7 fL (7.4-10.4); Platelet Count 180 10x3/uL (130-400); RBC Distribution Width 12.2 % (11.5-14.5); White Blood Cell (WBC) Count 6.1 10x3/uL (4.8-10.8)
[2023-03-16 16:46] LABS: Anion Gap 12 mmol/L (10-20); BUN (Urea Nitrogen) 7 mg/dL (8.9-20.6); Calc. Creatinine Clearance 0 mL/min (70-130); Calcium 8.9 mg/dL (7.8-10.44); Carbon Dioxide 25 mmol/L (22-29); Chloride 108 mmol/L (98-107); Estimated GFR 110; Glucose 120 mg/dL (70-105); Potassium 4.2 mmol/L (3.5-5.1); Sodium 141 mmol/L (136-145)
== END 2023-03-16 19:08 | disposition home or self-care (01) ==
LOC: ERS 15:15
DX: I82.432 Acute embolism and thrombosis of left popliteal vein (principal)
CPT/HCPCS: 36415; 80048; 85025; 85379